=== PATIENT | female | born 1955 | race Caucasian/White ===

== ENCOUNTER 2016-09-23 09:14 | Emergency (ER) | payer OTHER ==
[~2016-09-23] VITALS: Ht 162.6 cm; Wt 63.5 kg
[~2016-09-23 09:14] MED LIST: ASCO500C14 PO; LORA10CA PO; VITA1CAP59 PO
[2016-09-23] MEDS ORDERED: RX-NITROGLYCERIN 0.4 MG TAB BTL 25'S SL ONE ×2 (09:24→09:30)
[2016-09-23] MEDS ORDERED: ASPIRIN 81 MG CHEW (CHILDREN'S ASA) ONE (09:24)
[2016-09-23] MEDS ORDERED: ASPIRIN 81 MG CHEW (CHILDREN'S ASA) PO ONE (09:30)
[2016-09-23] MEDS ORDERED: METF500T4 PO (09:43)
--- NOTE | 2016-09-23 09:45 | ED Chest Pain ---
General Chief Complaint: Cardiac/General Problems Stated Complaint: EPIGASTRIC PAIN Source: patient Exam Limitations: no limitations History of Present Illness Time seen by provider: 09:18 Initial Comments Here with report of epigastric pain that radiated to her back and was associated with some nausea and sweating/clamminess. Acute onset one hour ago and has improved. Reported as severe at onset but now moderate with a 5 out of 10 pain reported. She's never had anything like this before. Otherwise fairly healthy aside from prediabetes. Timing/Duration: 1 hour, changing over time Severity/Quality: moderate, pressure, sharp Location: epigastric Radiation: back Activities at Onset: none Prior CP/Workup: no prior chest pain ASA po DIRECTOR MACHINE: No NTG SL DIRECTOR MACHINE: No Associated Symptoms: abdominal pain, back pain, diaphoresis, nausea/vomiting, No shortness of breath, No weakness Allergies and Home Medications Allergies Coded Allergies: No Known Drug Allergies (Unverified , 03/23/14) Home Medications Metformin HCl 500 Mg Tablet, 500 MG PO BID, (Reported) Review of Systems Constitutional: see HPI, No chills, diaphoresis, No fever EENTM: No Symptoms Reported Respiratory: No Symptoms Reported Cardiovascular: See HPI, Chest Pain, Denies Palpitations Gastrointestinal: Abdominal Pain, Nausea, Denies Vomiting Genitourinary: No Symptoms Reported Musculoskeletal: see HPI, back pain, No muscle pain Skin: no symptoms reported All Other Systems Reviewed Negative Unless Noted: Yes Past Wwyufwo-Kzwyca-Paghqn Hx Patient Social History Alcohol Use: Denies Use Recreational Drug Use: No Smoking Status: Never a Smoker Recent Foreign Travel: No Contact w/Someone Who Travel: No Immunizations Up To Date Date of Pneumonia Vaccine: Mar 18, 2004 Date of Influenza Vaccine: Mar 20, 2014 Surgeries HX Surgeries: Yes Surgeries: Orthopedic Respiratory Hx Respiratory Disorders: No Cardiovascular Hx Cardiac Disorders: No Neurological Hx Neurological Disorders: No Genitourinary Hx Genitourinary Disorders: No Gastrointestinal Hx Gastrointestinal Disorders: No Musculoskeletal Hx Musculoskeletal Disorders: No Endocrine Hx Endocrine Disorders: Yes Endocrine Disorders: Diabetes, Non-Insulin dep HEENT HX ENT Disorders: No Cancer Hx Cancer: No Psychosocial Hx Psychiatric Problems: No Reviewed Nursing Assessment Reviewed/Agree w Nursing PMH: Yes Family Medical History Significant Family History: Other Conditions/Hx (gallbladder disease) Physical Exam Vital Signs Vital Sign - Last 12Hours 09/23/16 09:20 Temp 97.3 Pulse 76 Resp 17 B/P (MAP) 154/88 Pulse Ox 98 Capillary Refill : General Appearance: No Apparent Distress, WD/WN HEENT: PERRL/EOMI, Pharynx Normal Neck: Non Tender, Supple Respiratory: Lungs Clear, Normal Breath Sounds Cardiovascular: Regular Rate, Rhythm, No Murmur Gastrointestinal: Non Tender, Soft Extremity: Normal Inspection, Normal Range of Motion, Non Tender Neurologic/Psychiatric: Alert, Oriented x3 Skin: Normal Color, Warm/Dry Progress/Results/Core Measures Results/Orders Lab Results Laboratory Tests Test 09/23/16 09:30 09/23/16 11:25 Range/Units White Blood Count 6.5 4.3-11.0 10^3/uL Red Blood Count 4.53 4.35-5.85 10^6/uL Hemoglobin 13.2 11.5-16.0 G/DL Hematocrit 39 35-52 % Mean Corpuscular Volume 86 80-99 FL Mean Corpuscular Hemoglobin 29 25-34 PG Mean Corpuscular Hemoglobin Concent 34 32-36 G/DL Red Cell Distribution Width 12.7 10.0-14.5 % Platelet Count 224 130-400 10^3/uL Mean Platelet Volume 10.5 H 7.4-10.4 FL Neutrophils (%) (Auto) 49 42-75 % Lymphocytes (%) (Auto) 43 12-44 % Monocytes (%) (Auto) 6 0-12 % Eosinophils (%) (Auto) 1 0-10 % Basophils (%) (Auto) 1 0-10 % Neutrophils # (Auto) 3.2 1.8-7.8 X 10^3 Lymphocytes # (Auto) 2.8 1.0-4.0 X 10^3 Monocytes # (Auto) 0.4 0.0-1.0 X 10^3 Eosinophils # (Auto) 0.1 0.0-0.3 10^3/uL Basophils # (Auto) 0.0 0.0-0.1 10^3/uL Prothrombin Time 12.6 12.2-14.7 SEC INR Comment 1.0 0.8-1.4 Activated Partial Thromboplast Time 25 24-35 SEC D-Dimer < 0.27 0.00-0.49 UG/ML Sodium Level 140 135-145 MMOL/L Potassium Level 3.5 L 3.6-5.0 MMOL/L Chloride Level 103 98-107 MMOL/L Carbon Dioxide Level 24 21-32 MMOL/L Anion Gap 13 5-14 MMOL/L Blood Urea Nitrogen 20 H 7-18 MG/DL Creatinine 0.86 0.60-1.30 MG/DL Estimat Glomerular Filtration Rate > 60 BUN/Creatinine Ratio 23 Glucose Level 103 70-105 MG/DL Calcium Level 9.0 8.5-10.1 MG/DL Magnesium Level 2.1 1.8-2.4 MG/DL Total Bilirubin 0.4 0.1-1.0 MG/DL Aspartate Amino Transf (AST/SGOT) 32 5-34 U/L Alanine Aminotransferase (ALT/SGPT) 23 0-55 U/L Alkaline Phosphatase 89 40-136 U/L Myoglobin 26.1 10.0-92.0 NG/ML Troponin I < 0.30 < 0.30 <0.30 NG/ML Total Protein 7.2 6.4-8.2 G/DL Albumin 4.1 3.2-4.5 G/DL Amylase Level 93 25-125 U/L Lipase 72 8-78 U/L My Orders Orders - RUPERTO ZAMORANO MD Cbc With Automated Diff (09/23/16:) Magnesium (09/23/16:) Chest 1 View, Ap/Pa Only (09/23/16) Ekg Tracing (09/23/16) Cardiac Profile 1 (09/23/16:) Comprehensive Metabolic Panel (09/23/16) Myoglobin Serum (09/23/16) O2 (09/23/16:) Monitor-Rhythm Ecg Trace Only (09/23/16) Lipid Panel (09/24/16 06:00) Aspirin Chewable Tablet (Baby Aspirin Ch (09/23/16:30) Rx-Nitroglycerin Sl Tabs (Rx-Nitrostat S (09/23/16) Saline Lock/Iv-Start (09/23/16) Lipase (09/23/16:) Amylase (09/23/16:) Fibrin Degradation Products (09/23/16:) Us Gallbladder 94505 (4/8/17 09:26) Aspirin Chewable Tablet (Baby Aspirin Ch (09/23/16 09:24) Rx-Nitroglycerin Sl Tabs (Rx-Nitrostat S (09/23/16 09:24) Saline Lock/Iv-Start (09/23/16 09:51) Ns Iv 1000 Ml (Sodium Chloride 0.9%) (09/23/16 09:51) Protime With Inr (09/23/16 09:30) Partial Thromboplastin Time (09/23/16 09:30) Mri Cholangio-Pancreatography (09/23/16 11:07) Ekg Tracing (09/23/16 11:22) Troponin I (09/23/16 11:22) Medications Given in ED Current Medications Medications Dose Ordered Sig/Beck Route Start Time Stop Time Status Last Admin Dose Admin Aspirin 324 mg ONCE ONCE PO 09/23/16 09:30 09/23/16 09:32 DC 09/23/16 09:30 324 MG Nitroglycerin 0.4 mg UD ONCE SL 09/23/16 09:30 09/23/16 09:32 DC 09/23/16 09:31 0.4 MG Sodium Chloride 1,000 ml @ 0 mls/hr Q0M ONCE IV 09/23/16 09:51 09/23/16 09:52 DC 09/23/16 09:54 1,000 MLS/HR Vital Signs/I&O Vital Sign - Last 12Hours 09/23/16 09:20 Temp 97.3 Pulse 76 Resp 17 B/P (MAP) 154/88 Pulse Ox 98 Progress Note : Progress Note Seen and evaluated. IV, labs, EKG and chest x-ray ordered. Gallbladder ultrasound ordered. ASA 324 mg by mouth and nitroglycerin sublingual ordered. Monitor patient. 1056: Ultrasound results noted as well as labs. I did discuss the case with Dr. Wallis. There is recommendation of MRCP. We will check and see if that's available. 1110: MR CP is available and this has been ordered. We will repeat troponin and EKG for further evaluation of the cardiac concerns. 1130:to MRCP. 1320: I did discuss the case with Dr. Wallis and reviewed the MRCP results. He would like to see the patient in office on Sunday. Patient is pain resolved currently. She is in agreement with follow- up with him. She will likely need cholecystectomy and patient agrees and understands that. Discharged home with return precautions. Patient verbalize understanding instructions and agreement with plan. ECG Initial ECG Impression Date: Sep 23, 2016 Initial ECG Impression Time: 09:24 Initial ECG Rate: 73 Initial ECG Rhythm: Normal Sinus Initial ECG Impression: Normal Initial ECG Comparisson: No Previous ECG Available Comment Sinus rhythm with normal axis. No evidence of ST elevation OR. No previous available for comparison. Interpreted by me. EKG : EKG Time: 11:28 Rate: 68 Rhythm: Normal Sinus ECG Comparisson: Unchanged ECG Impression: Normal Comment Sinus rhythm with normal axis. No evidence of ST elevation OR. Unchanged from previous. Interpreted by me. Diagnostic Imaging Diagonstic Imaging: Xray Plain Films/CT/US/NM/MRI: chest Comments NAME: KARENA HARRIS [facility] REC#: [id number] PT STATUS: REG ER : 1955 PHYSICIAN: RUPERTO ZAMORANO MD ADMIT DATE: 09/23/16/ER Signed Date of Exam: 09/23/16 CHEST 1 VIEW, AP/PA ONLY INDICATION: Epigastric pain and diaphoresis. COMPARISON: None. FINDINGS: Upright portable view of the chest is obtained. Heart size is normal. The pulmonary vessels appear unremarkable. There is no pneumothorax, mediastinal widening, or pleural fluid demonstrated. The lungs are clear. IMPRESSION: Negative chest. Dictated by: Dictated on workstation # [id number] Dict: 09/23/16 1013 Trans: 09/23/16 1019 [id number] Interpreted by: LEYDI BLUM DO Electronically signed by:LEYDI BLUM DO 09/23/16 1019 Diagonstic Imaging: Ultrasound Plain Films/CT/US/NM/MRI: abdomen Comments [place] NAME: KARENA HARRIS [facility] REC#: [id number] PT STATUS: REG ER : 1955 PHYSICIAN: RUPERTO ZAMORANO MD ADMIT DATE: 09/23/16/ER Draft Date of Exam:09/23/16 US GALLBLADDER [id number] PROCEDURE: US Gallbladder. TECHNIQUE: Multiple real-time grayscale images were obtained over the right upper quadrant in various projections. INDICATION: Epigastric pain. COMPARISON: None. FINDINGS: The liver appears unremarkable. There is no focal hepatic mass. Color Doppler imaging demonstrates normal hepatopetal flow in the main portal vein. The common bile duct measures about 10 mm which is prominent even for age. No definite stone is seen. There is no intrahepatic biliary dilatation. There is a 6 mm non-shadowing echogenic focus adherent to the gallbladder wall which is probably a small polyp. No definite stones are seen. There is no pericholecystic fluid or gallbladder wall thickening. No sonographic Leon's sign. The pancreas appears unremarkable as visualized. There is no ascites. The right kidney measures 10.7 cm in length and appears normal. IMPRESSION: 1. A 6 mm probable gallbladder polyp. 2. Common bile duct measures about 10 mm in diameter which is prominent. No discrete mass or stone is seen. If clinically warranted, MRCP may be of additional benefit. Dictated on workstation # [id number] Dict: 09/23/16 1044 Trans: 09/23/16 1049 [id number] Interpreted by: LEYDI BLUM DO Electronically signed by: Sonalgonschao Imaging: MRI Plain Films/CT/US/NM/MRI: abdomen Comments [place] NAME: KARENA HARRIS [facility] REC#: [id number] PT STATUS: REG ER : 1955 PHYSICIAN: RUPERTO ZAMORANO MD ADMIT DATE: 09/23/16/ER Draft Date of Exam:09/23/16 MRI CHOLANGIO-PANCREATOGRAPHY PROCEDURE: MR imaging cholangiography-pancreatography. TECHNIQUE: Multiplanar imaging of the abdomen was performed on a 1.5 Renetta magnet without contrast. 3D reconstructions were made for the MRCP INDICATION: Dilated common bile duct, abnormal ultrasound. COMPARISON: Gallbladder ultrasound dated 09/23/2016. FINDINGS: The common bile duct is prominent in caliber measuring up to 9 mm in diameter; however, no focal stone or obstructive process is seen. This is likely within normal limits for patient. The pancreatic duct is not well demonstrated. The liver appears unremarkable. The gallbladder appears mildly distended. There does appear to be some edema of the wall of the gallbladder which is nonspecific. No discrete stones are seen. No ascites. The liver, pancreas, spleen, adrenal glands, and kidneys are unremarkable as visualized. IMPRESSION: 1. The common bile duct is mildly prominent; however, no retained stone or mass is seen. 2. There is some mild edema in the gallbladder wall which is nonspecific. No stones are seen. Acalculus cholecystitis would difficult to entirely exclude. 3. No additional abnormality is demonstrated. Dictated on workstation # [id number] Dict: 09/23/16 1221 Trans: 09/23/16 1250 [id number] Interpreted by: LEYDI BLUM DO Electronically signed by: Departure Impression Impression: Primary Impression: Right upper quadrant abdominal pain Additional Impression: Gallbladder polyp Disposition: HOME, SELF-CARE Condition: Improved Departure-Patient Inst. Decision time for Depature: 13:31 Referrals: NAYELI WALLIS MINDI DO (PCP/Family) Primary Care Physician Patient Instructions: POSS GALLSTONE-W/BILIARY COLIC Add. Discharge Instructions: All discharge instructions reviewed with patient and/or family. Voiced understanding. Clear liquid diet for 24 hours and then advance as tolerated. Follow-up with Dr. Wallis and Sunday for recheck and further evaluation. Call his office in the morning for appointment time or you may show up at 1 o'clock and he will fit you in. Return for worse pain, fever, vomiting, weakness, breathing problems or other concerns as needed. Avoid fats in your diet. Copy Copies To 1: NAYELI WALLIS DO Copies To 2: SUHAIL MCCLENDON TIMOTHY D MD Sep 23, 2016 09:45
[2016-09-23] MEDS ORDERED: NS IV 1000 ML 1,000 ML IV ONE (09:51)
[2016-09-23 09:56] LABS: BASOPHILS % (AUTO) 1 % (0-10); EOSINOPHILS # (AUTO) 0.1 10^3/uL (0.0-0.3); EOSINOPHILS % (AUTO) 1 % (0-10); LYMPHOCYTES # (AUTO) 2.8 X 10^3 (1.0-4.0); LYMPHOCYTES % (AUTO) 43 % (12-44); MEAN CORPUSCULAR HEMOGLOBIN 29 PG (25-34); MEAN CORPUSCULAR HGB CONC 34 G/DL (32-36); MEAN CORPUSCULAR VOLUME 86 FL (80-99); MEAN PLATELET VOLUME 10.5 FL (7.4-10.4); MONOCYTES # (AUTO) 0.4 X 10^3 (0.0-1.0); MONOCYTES % (AUTO) 6 % (0-12); NEUTROPHILS # (AUTO) 3.2 X 10^3 (1.8-7.8); NEUTROPHILS % (AUTO) 49 % (42-75); PLATELET COUNT 224 10^3/uL (130-400); RED BLOOD COUNT 4.53 10^6/uL (4.35-5.85); RED CELL DISTRIBUTION WIDTH 12.7 % (10.0-14.5); WHITE BLOOD COUNT 6.5 10^3/uL (4.3-11.0)
[2016-09-23 10:17] LABS: ALANINE AMINOTRANSFERASE 23 U/L (0-55); ALBUMIN 4.1 G/DL (3.2-4.5); AMYLASE 93 U/L (25-125); ANION GAP 13 MMOL/L (5-14); ASPARTATE AMINO TRANSFERASE 32 U/L (5-34); BILIRUBIN,TOTAL 0.4 MG/DL (0.1-1.0); BLOOD UREA NITROGEN 20 MG/DL (7-18); BUN/CREATININE RATIO 23; CARBON DIOXIDE 24 MMOL/L (21-32); CHLORIDE 103 MMOL/L (98-107); CREATININE SERUM 0.86 MG/DL (0.60-1.30); GFR ESTIMATED > 60; GLUCOSE 103 MG/DL (70-105); LIPASE 72 U/L (8-78); MAGNESIUM 2.1 MG/DL (1.8-2.4); POTASSIUM 3.5 MMOL/L (3.6-5.0); SODIUM 140 MMOL/L (135-145); TOTAL PROTEIN 7.2 G/DL (6.4-8.2)
--- NOTE | 2016-09-23 10:17 | Diagnostic Imaging Report ---
INDICATION: Epigastric pain and diaphoresis. COMPARISON: None. FINDINGS: Upright portable view of the chest is obtained. Heart size is normal. The pulmonary vessels appear unremarkable. There is no pneumothorax, mediastinal widening, or pleural fluid demonstrated. The lungs are clear. IMPRESSION: Negative chest. Dictated by: Dictated on workstation # [id number]
[2016-09-23 10:24] LABS: MYOGLOBIN SERUM 26.1 NG/ML (10.0-92.0)
[2016-09-23 10:39] LABS: PARTIAL THROMBOPLASTIN TIME 25 SEC (24-35)
[2016-09-23 10:45] LABS: PROTHROMBIN TIME PATIENT 12.6 SEC (12.2-14.7)
--- NOTE | 2016-09-23 10:49 | Diagnostic Imaging Report ---
PROCEDURE: US Gallbladder. TECHNIQUE: Multiple real-time grayscale images were obtained over the right upper quadrant in various projections. INDICATION: Epigastric pain. COMPARISON: None. FINDINGS: The liver appears unremarkable. There is no focal hepatic mass. Color Doppler imaging demonstrates normal hepatopetal flow in the main portal vein. The common bile duct measures about 10 mm which is prominent even for age. No definite stone is seen. There is no intrahepatic biliary dilatation. There is a 6 mm non-shadowing echogenic focus adherent to the gallbladder wall which is probably a small polyp. No definite stones are seen. There is no pericholecystic fluid or gallbladder wall thickening. No sonographic Leon's sign. The pancreas appears unremarkable as visualized. There is no ascites. The right kidney measures 10.7 cm in length and appears normal. IMPRESSION: 1. A 6 mm probable gallbladder polyp. 2. Common bile duct measures about 10 mm in diameter which is prominent. No discrete mass or stone is seen. If clinically warranted, MRCP may be of additional benefit. Dictated by: Dictated on workstation # [id number]
--- NOTE | 2016-09-23 12:51 | Diagnostic Imaging Report ---
PROCEDURE: MR imaging cholangiography-pancreatography. TECHNIQUE: Multiplanar imaging of the abdomen was performed on a 1.5 Renetta magnet without contrast. 3D reconstructions were made for the MRCP INDICATION: Dilated common bile duct, abnormal ultrasound. COMPARISON: Gallbladder ultrasound dated 09/23/2016. FINDINGS: The common bile duct is prominent in caliber measuring up to 9 mm in diameter; however, no focal stone or obstructive process is seen. This is likely within normal limits for patient. The pancreatic duct is not well demonstrated. The liver appears unremarkable. The gallbladder appears mildly distended. There does appear to be some edema of the wall of the gallbladder which is nonspecific. No discrete stones are seen. No ascites. The liver, pancreas, spleen, adrenal glands, and kidneys are unremarkable as visualized. IMPRESSION: 1. The common bile duct is mildly prominent; however, no retained stone or mass is seen. 2. There is some mild edema in the gallbladder wall which is nonspecific. No stones are seen. Acalculus cholecystitis would difficult to entirely exclude. 3. No additional abnormality is demonstrated. Dictated by: Dictated on workstation # [id number]
[2016-09-23 13:45] VITALS: BP 135/72
--- OUTSIDE RECORDS SUMMARY | 2016-10-29 04:44 | XMS REPORT | Clinical Summary ---
Author Author User, [employer] Antoinette Dickinson DO, FACP Address Unknown Phone Allergies, Adverse Reactions, Alerts Allergy Name Reaction Description Start Date Severity Status Provider No Known Allergies Carlos Enrique Krueger Conditions or Problems Problem Name Problem Code Onset Date Status Entry Date Provider Comment Standard Description Annotate SINUSITIS, SPHENOIDAL, ACUTE 461.3 Resolved Antoinette Dickinson Acute sphenoidal sinusitis WELL WOMAN V70.0 Resolved Antoinette Dickinson Routine general medical examination at a health care facility ABNORMAL MAMMOGRAM 793.80 Resolved Antoinette Dickinson Abnormal mammogram, unspecified ALLERGIC RHINITIS, SEASONAL 477.0 Active Antoinette Dickinson Allergic rhinitis due to pollen DIABETES MELLITUS, NONINSULIN DEPENDENT (NIDDM) 250.02 Active Antoinette Dickinson Diabetes mellitus without mention of complication, type II or unspecified type, uncontrolled WELL WOMAN V70.0 Resolved Antoinette Dickinson Routine general medical examination at a health care facility SINUSITIS, SPHENOIDAL, ACUTE 461.3 Resolved Antoinette Dickinson Acute sphenoidal sinusitis WEIGHT GAIN, ABNORMAL 783.1 Active Antoinette Dickinson Abnormal weight gain SINUSITIS, SPHENOIDAL, ACUTE 461.3 Active Antoinette Dickinson Acute sphenoidal sinusitis Medication List Medication Instructions Start Date Stop Date Generic Name NDC Status Provider Patient Instruction METFORMIN HCL 500 MG TABS 1 po daily METFORMIN HCL 51033457809 Active Monica Mcmahon AUGMENTIN 500-125 MG TAB 1 PO BID AMOXICILLIN-POT CLAVULANATE 13553806735 No Longer Active Antoinette Dickinson AUGMENTIN 500-125 MG TAB 1 PO BID AMOXICILLIN-POT CLAVULANATE 40983987276 No Longer Active Antoinette Dickinson ATROVENT 0.06 % SOLN 2 puffs each nostril TID prn runny nose 2013 IPRATROPIUM BROMIDE 81884653940 No Longer Active Antoinette Dickinson PYRIDIUM 200 MG TAB 1 PO TID prn urinary urgency PHENAZOPYRIDINE HCL 01999110231 No Longer Active Monica Mcmahon BACTRIM DS 800-160 MG TAB 1 PO BID x 5 DAYS TRIMETHOPRIM-SULFAMETHOXAZOLE 30362703666 No Longer Active Monica Mcmahon KEFLEX 500 MG CAP 1 PO TID for 5 days CEPHALEXIN 71149629157 No Longer Active Antoinette Dickinson NASONEX 50 MCG/ACT SUSP 2 puffs BID MOMETASONE FUROATE 71344808321 Active Gianluca Vigil PREDNISONE 20 MG TAB 2 pills at once for 2 days then 1 pill daily for 2 days PREDNISONE 17885942032 No Longer Active Antoinette Dickinson AUGMENTIN 500-125 MG TAB 1 PO BID AMOXICILLIN-POT CLAVULANATE 53146262614 No Longer Active Antoinette PERRY'Silverio NASAL SPRAY (DEXAMETHASONE, GENTAMICIN, SALINE) 2 puffs each nostril TID for [address] PERRY'Silverio NASAL SPRAY ( DEXAMETHASONE, GENTAMICIN, SALINE) No Longer Active Antoinette Dickinson CLARITIN 10 MG TAB 1 PO daily LORATADINE 23226928409 Active Antoinette Dickinson Immunizations Vaccine Administration Date Value Standard Description Influenza vaccine given done influenza virus vaccine, unspecified formulation Influenza vaccine given DONE influenza virus vaccine, unspecified formulation Vital Signs Date Name Value Unit Range Description blood pressure, diastolic - 8462-4 83 mm[Hg] BP blackmon blood pressure, systolic - 8480-6 139 mm[Hg] BP sys pulse rate E&M - 8867-4 68 /min Heart rate respiratory rate E&M - 9279-1 14 /min Resp rate weight E&M - 3141-9 149 [lb_av] Weight Measured blood pressure, diastolic - 8462-4 80 mm[Hg] BP blackmon blood pressure, systolic - 8480-6 120 mm[Hg] BP sys pulse rate E&M - 8867-4 78 /min Heart rate respiratory rate E&M - 9279-1 14 /min Resp rate weight E&M - 3141-9 145 [lb_av] Weight Measured blood pressure, diastolic - 8462-4 66 mm[Hg] BP blackmon blood pressure, systolic - 8480-6 122 mm[Hg] BP sys pulse rate E&M - 8867-4 76 /min Heart rate respiratory rate E&M - 9279-1 14 /min Resp rate temperature E&M 98.4 [degF] Body temperature blood pressure, diastolic - 8462-4 76 mm[Hg] BP blackmon blood pressure, systolic - 8480-6 142 mm[Hg] BP sys pulse rate E&M - 8867-4 70 /min Heart rate respiratory rate E&M - 9279-1 14 /min Resp rate temperature E&M 98.6 [degF] Body temperature weight E&M - 3141-9 130 [lb_av] Weight Measured Diagnostic Results Date Name Value Unit Range Description Clinical Lists Update: CBC,CMP,FLP,TSH,HgA1c - Chemistry albumin, serum 4.3 g/dL Estimated Glomerular Filtration Rate (calc) >60 mL/min/1.73m2 urea nitrogen, blood 16 mg/dL calcium, serum 9.4 mg/dL chloride, serum 105 mmol/L cholesterol, serum 168 mg/dL carbon dioxide, venous blood 30 mmol/L creatinine, serum 0.87 mg/dL HDL cholesterol, serum 59 mg/dL hemoglobin A1C, blood, as % of total hemoglobin 6.7 % thyroid stimulating hormone, serum 1.77 u[iU]/mL LDL cholesterol, serum 96 mg/dL potassium, serum 3.7 mmol/L protein, total, serum 7.5 g/dL aspartate aminotransferase (SGOT), serum 17 U/L alanine aminotransferase (SGPT), serum 14 U/L bilirubin, serum, total 0.4 mg/dL triglyceride, serum, fasting 77 mg/dL sodium, serum 141 mmol/L very low density lipoproteins 15 mg/dL glucose, plasma fasting 93 mg/dL alkaline phosphatase, serum 76 U/L Clinical Lists Update: CBC,CMP,FLP,TSH,HgA1c - Hematology hematocrit, blood 40 % hemoglobin, blood 13.7 g/dL platelet count 227 10*3/mm3 erythrocyte (RBC) count 4.57 10*6/mm3 leukocyte count, blood 6.6 10*3/mm3 mean corpuscular volume, RBC 87 fL red blood cell distribution width 12.0 % Clinical Lists Update: CMP,FLP,HGA1C,MICROALBUMIN - Chemistry creatinine, serum 0.82 mg/dL albumin, serum 4.2 g/dL hemoglobin A1C, blood, as % of total hemoglobin 6.4 % LDL cholesterol, serum 87 mg/dL potassium, serum 4.0 mmol/L protein, total, serum 7.1 g/dL aspartate aminotransferase (SGOT), serum 19 U/L alanine aminotransferase (SGPT), serum 18 U/L bilirubin, serum, total 0.4 mg/dL triglyceride, serum, fasting 61 mg/dL sodium, serum 140 mmol/L very low density lipoproteins 12 mg/dL glucose, plasma fasting 98 mg/dL Estimated Glomerular Filtration Rate (calc) >60 mL/min/1.73m2 HDL cholesterol, serum 67 mg/dL carbon dioxide, venous blood 25 mmol/L cholesterol, serum 165 mg/dL chloride, serum 105 mmol/L calcium, serum 9.9 mg/dL urea nitrogen, blood 23 mg/dL alkaline phosphatase, serum 77 U/L Clinical Lists Update: CMP,FLP,HGA1C,MICROALBUMIN - Urinalysis microalbumin, urine, semiquantitative 6.2 mg/dL Encounters Code Encounter Date Provider Facility CPT-95460 Ofc Vst, Est Level III 21:08:46 CDT Antoinette Dickinson DO, FACP CPT-31977 Ofc Vst, Est Level IV 20:22:13 CDT Antoinette Dickinson DO, FACP CPT-25648 Ofc Vst, Est Level III 13:31:05 [employer] Antoinette Dickinson DO, FACP CPT-99159 Ofc Vst, New Level III 16:58:14 CDT Antoinette Dickinson DO, FACP Procedures Code Procedure Name Date Entry Date Standard Description CPT-50961 Preventive, Est, (40-64) 16:55:51 CDT CPT-57124 Preventive, Est, (40-64) 13:49:28 CDT CPT-27557 Handling of specimen from office to lab 12:51:38 CDT CPT-37485 Geraldo Dawn, (40-64) 12:51:38 CDT
--- OUTSIDE RECORDS SUMMARY | 2016-10-29 04:44 | XMS REPORT | Clinical Summary ---
Author Author User, [employer] Organization Antoinette Dickinson DO, FACP Address Unknown Phone Allergies, Adverse Reactions, Alerts Allergy Name Reaction Description Start Date Severity Status Provider No Known Allergies Carlos Enrique Pati Conditions or Problems Problem Name Problem Code [...] 783.1 Active Antoinette Dickinson Abnormal weight gain Medication List Medication Instructions Start Date Stop Date Generic Name NDC Status Provider Patient Instruction AUGMENTIN 500-125 MG TAB 1 PO BID AMOXICILLIN-POT CLAVULANATE 47507973197 No Longer Active Antoinette Dickinson ATROVENT 0.06 % SOLN 2 puffs each nostril TID prn runny nose 2013 IPRATROPIUM BROMIDE 06648712047 No Longer Active Antoinette Dickinson PYRIDIUM 200 MG TAB 1 PO TID prn urinary urgency PHENAZOPYRIDINE HCL 54368790679 No Longer Active Monica Mcmahon BACTRIM DS 800-160 MG TAB 1 PO BID x 5 DAYS TRIMETHOPRIM-SULFAMETHOXAZOLE 07389599971 No Longer Active Monica Mcmahon KEFLEX 500 MG CAP 1 PO TID for 5 days CEPHALEXIN 74382453713 No Longer Active Antoinette Dickinson NASONEX 50 MCG/ACT SUSP 2 puffs BID MOMETASONE FUROATE 77614116111 Active Gianluca Vigil PREDNISONE 20 MG TAB 2 pills at once for 2 days then 1 pill daily for 2 days PREDNISONE 33712300128 No Longer Active Antoinette Dickinson AUGMENTIN 500-125 MG TAB 1 PO BID AMOXICILLIN-POT CLAVULANATE 42092325529 No Longer Active Antoinette PERRY'Silverio NASAL SPRAY (DEXAMETHASONE, GENTAMICIN, SALINE) 2 puffs each nostril TID for [address] PERRY'Silverio NASAL SPRAY ( DEXAMETHASONE, GENTAMICIN, SALINE) No Longer Active Antoinette Dickinson CLARITIN 10 MG TAB 1 PO daily LORATADINE 29939287924 Active Antoinette Dickinson Immunizations Vaccine Administration Date Value Standard Description Influenza vaccine given done influenza virus vaccine, unspecified formulation Influenza vaccine given DONE influenza virus vaccine, unspecified formulation Vital Signs Date Name Value Unit Range Description blood pressure, diastolic - 8462-4 80 mm[Hg] [...] Description Clinical Lists Update: CBC,CMP,FLP,TSH,HgA1c - Chemistry Estimated Glomerular Filtration Rate (calc) >60 mL/min/1.73m2 thyroid stimulating hormone, serum 1.77 u[iU]/mL glucose, plasma fasting 93 mg/dL alkaline phosphatase, serum 76 U/L very low density lipoproteins 15 mg/dL urea nitrogen, blood 16 mg/dL sodium, serum 141 mmol/L calcium, serum 9.4 mg/dL triglyceride, serum, fasting 77 mg/dL chloride, serum 105 mmol/L bilirubin, serum, total 0.4 mg/dL cholesterol, serum 168 mg/dL alanine aminotransferase (SGPT), serum 14 U/L carbon dioxide, venous blood 30 mmol/L aspartate aminotransferase (SGOT), serum 17 U/L creatinine, serum 0.87 mg/dL protein, total, serum 7.5 g/dL HDL cholesterol, serum 59 mg/dL potassium, serum 3.7 mmol/L hemoglobin A1C, blood, as % of total hemoglobin 6.7 % LDL cholesterol, serum 96 mg/dL albumin, serum 4.3 g/dL Clinical Lists Update: CBC,CMP,FLP,TSH,HgA1c - Hematology hematocrit, blood 40 % hemoglobin, blood 13.7 g/dL platelet count 227 10*3/mm3 erythrocyte (RBC) count 4.57 10*6/mm3 leukocyte count, blood 6.6 10*3/mm3 mean corpuscular volume, RBC 87 fL red blood cell distribution width 12.0 % Clinical Lists Update: CMP,FLP,HGA1C,MICROALBUMIN - Chemistry alanine aminotransferase (SGPT), serum 18 U/L LDL cholesterol, serum 87 mg/dL bilirubin, serum, total 0.4 mg/dL cholesterol, serum 165 mg/dL triglyceride, serum, fasting 61 mg/dL chloride, serum 105 mmol/L sodium, serum 140 mmol/L calcium, serum 9.9 mg/dL very low density lipoproteins 12 mg/dL urea nitrogen, blood 23 mg/dL glucose, plasma fasting 98 mg/dL alkaline phosphatase, serum 77 U/L Estimated Glomerular Filtration Rate (calc) >60 mL/min/1.73m2 albumin, serum 4.2 g/dL carbon dioxide, venous blood 25 mmol/L creatinine, serum 0.82 mg/dL aspartate aminotransferase (SGOT), serum 19 U/L HDL cholesterol, serum 67 mg/dL protein, total, serum 7.1 g/dL hemoglobin A1C, blood, as % of total hemoglobin 6.4 % potassium, serum 4.0 mmol/L Clinical Lists Update: CMP,FLP,HGA1C,MICROALBUMIN - Urinalysis microalbumin, urine, semiquantitative 6.2 mg/dL Encounters Code Encounter Date Provider Facility CPT-15574 Ofc Vst, Est Level IV 20:22:13 CDT Antointete Dickinson DO, FACP CPT-97202 Ofc Vst, Est Level III 13:31:05 [employer] Antoinette Dickinson DO, FACP CPT-50158 Ofc Vst, New Level III 16:58:14 CDT Antoinette Dickinson DO, FACP Procedures Code Procedure Name Date Entry Date Standard Description CPT-55482 Preventive, Est, (40-64) 16:55:51 CDT CPT-06824 Preventive, Est, (40-64) 13:49:28 CDT CPT-18414 Handling of specimen from office to lab 12:51:38 CDT CPT-04622 Preventive, Est, (40-64) 12:51:38 CDT
--- OUTSIDE RECORDS SUMMARY | 2016-10-29 04:44 | XMS REPORT | Continuity of Care Document ---
Author Author [facility] Organization [facility] Address Unknown Phone Unavailable Allergies Active Description Code Type Severity Reaction Onset Reported/Identified Relationship to Patient Clinical Status Yes No Known Drug Allergies [id number] Drug Allergy Unknown N/ A 03/23/2014 Medications Problems Date Dx Coded Attending Type Code Diagnosis Diagnosed By 04/30/2014 MCCLENDON DO, SUHAIL Ot 793.80 09/10/2014 Ot 250.02 09/10/2014 Ot 477.0 09/10/2014 Ot V58.69 09/10/2014 Ot V70.0 03/26/2015 MCCLENDON DO, SUHAIL Ot 250.02 03/26/2015 MCCLENDON DO, SUHAIL Ot 272.7 03/26/2015 MCCLENDON DO, SUHAIL Ot 783.1 03/26/2015 MCCLENDON DO, SUHAIL Ot V70.0 04/30/2015 MCCLENDON DO, SUHAIL Ot Z12.31 05/17/2015 MCCLENDON DO, SUHAIL Ot Z12.31 09/13/2015 MCCLENDON DO, SUHAIL Ot E11.65 09/13/2015 MCCLENDON DO, SUHAIL Ot E75.6 09/13/2015 MCCLENDON DO, SUHAIL Ot R63.5 09/13/2015 MCCLENDON DO, SUHAIL Ot Z00.00 09/29/2015 MCCLENDON DO, SUHAIL Ot E11.65 09/29/2015 MCCLENDON DO, SUHAIL Ot E75.6 09/29/2015 MCCLENDON DO, SUHAIL Ot R63.5 09/29/2015 MCCLENDON DO, SUHAIL Ot Z00.00 05/18/2016 Ot Z12.31 ENCNTR SCREEN MAMMOGRAM FOR MALIGNANT NE 05/29/2016 Ot Z12.31 ENCNTR SCREEN MAMMOGRAM FOR MALIGNANT NE 09/23/2016 LONA CANTU, RUPERTO Mock Ot K82.4 CHOLESTEROLOSIS OF GALLBLADDER 09/23/2016 RUPERTO ZAMORANO MD Ot R10.11 RIGHT UPPER QUADRANT PAIN 09/23/2016 RUPERTO ZAMORANO MD, Ot R10.13 EPIGASTRIC PAIN 09/27/2016 RUPERTO ZAMORANO MD, Ot K82.4 CHOLESTEROLOSIS OF GALLBLADDER 09/27/2016 RUPERTO ZAMORANO MD, Ot R10.11 RIGHT UPPER QUADRANT PAIN 09/27/2016 RUPERTO ZAMORANO MD, Ot R10.13 EPIGASTRIC PAIN Procedures Results Test Result Range Complete blood count (CBC) with automated white blood cell (WBC) differential - 09/23/16 09:30 Blood leukocytes automated count (number/volume) 6.5 10*3/ uL 4.3-11.0 Blood erythrocytes automated count (number/volume) 4.53 10*6 /uL 4.35-5.85 Venous blood hemoglobin measurement (mass/volume) 13.2 g/dL 11.5-16.0 Blood hematocrit (volume fraction) 39 % 35-52 Automated erythrocyte mean corpuscular volume 86 [foz_us] 80-99 Automated erythrocyte mean corpuscular hemoglobin (mass per erythrocyte) 29 pg 25-34 Automated erythrocyte mean corpuscular hemoglobin concentration measurement ( mass/volume) 34 g/dL 32-36 Automated erythrocyte distribution width ratio 12.7 % 10.0-14.5 Automated blood platelet count (count/volume) 224 10*3/uL 130-400 Automated blood platelet mean volume measurement 10.5 [foz_ us] 7.4-10.4 Automated blood neutrophils/100 leukocytes 49 % 42-75 Automated blood lymphocytes/100 leukocytes 43 % 12-44 Blood monocytes/100 leukocytes 6 % 0-12 Automated blood eosinophils/100 leukocytes 1 % 0-10 Automated blood basophils/100 leukocytes 1 % 0-10 Blood neutrophils automated count (number/volume) 3.2 10*3 1.8-7.8 Blood lymphocytes automated count (number/volume) 2.8 10*3 1.0-4.0 Blood monocytes automated count (number/volume) 0.4 10*3 0.0-1.0 Automated eosinophil count 0.1 10*3/uL 0.0-0.3 Automated blood basophil count (count/volume) 0.0 10*3/uL 0.0-0.1 Comprehensive metabolic panel - 09/23/16 09:30 Serum or plasma sodium measurement (moles/volume) 140 mmol/ L 135-145 Serum or plasma potassium measurement (moles/volume) 3.5 mmol/L 3.6-5.0 Serum or plasma chloride measurement (moles/volume) 103 mmol /L 98-107 Carbon dioxide 24 mmol/L 21-32 Serum or plasma anion gap determination (moles/volume) 13 mmol/L 5-14 Serum or plasma urea nitrogen measurement (mass/volume) 20 mg/dL 7-18 Serum or plasma creatinine measurement (mass/volume) 0.86 mg /dL 0.60-1.30 Serum or plasma urea nitrogen/creatinine mass ratio 23 NRG Serum or plasma creatinine measurement with calculation of estimated glomerular filtration rate > NRG Serum or plasma glucose measurement (mass/volume) 103 mg/dL 70-105 Serum or plasma calcium measurement (mass/volume) 9.0 mg/dL 8.5-10.1 Serum or plasma total bilirubin measurement (mass/volume) 0.4 mg/dL 0.1-1.0 Serum or plasma alkaline phosphatase measurement (enzymatic activity/volume) 89 U/L 40-136 Serum or plasma aspartate aminotransferase measurement (enzymatic activity/ volume) 32 U/L 5-34 Serum or plasma alanine aminotransferase measurement (enzymatic activity/volume ) 23 U/L 0-55 Serum or plasma protein measurement (mass/volume) 7.2 g/dL 6.4-8.2 Serum or plasma albumin measurement (mass/volume) 4.1 g/dL 3.2-4.5 Magnesium - 09/23/16 09:30 Magnesium 2.1 mg/dL 1.8-2.4 Serum or plasma troponin i.cardiac measurement (mass/volume) - 09/23/16 09:30 Serum or plasma troponin i.cardiac measurement (mass/volume) < ng/mL <0.30 Myoglobin, serum - 09/23/16 09:30 Myoglobin, serum 26.1 ng/mL 10.0-92.0 Serum or plasma amylase measurement (enzymatic activity/volume) - 09/23/16 09: 30 Serum or plasma amylase measurement (enzymatic activity/volume) 93 U/L 25-125 Lipase - 09/23/16 09:30 Lipase 72 U/L 8-78 PT panel in platelet poor plasma by coagulation assay - 09/23/16 09:30 Prothrombin time (PT) in platelet poor plasma by coagulation assay 12.6 s 12.2-14.7 INR in platelet poor plasma or blood by coagulation assay 1.0 0.8-1.4 Activated partial thromboplastin time (aPTT) in platelet poor plasma bycoagulation assay - 09/23/16 09:30 Activated partial thromboplastin time (aPTT) in platelet poor plasma bycoagulation assay 25 s 24-35 Fibrin D-dimer FEU measurement in platelet poor plasma (mass/volume) - 09:30 Fibrin D-dimer FEU measurement in platelet poor plasma (mass/volume) < ug/mL 0.00-0.49 Serum or plasma troponin i.cardiac measurement (mass/volume) - 09/23/16 11:25 Serum or plasma troponin i.cardiac measurement (mass/volume) < ng/mL <0.30 Encounters ACCT No. Visit Date/Time Discharge Status Pt. Type Provider Facility Loc./Unit Complaint [id number] 09/27/2016 05:35:00 2016 14:43:00 DIS Outpatient NAYELI WALLIS DO [facility] PREOP GALLBLADDER POLYPS [id number] 09/23/2016 09:15:00 2016 13:44:00 DIS Emergency RUPERTO ZAMORANO MD [facility] ER EPIGASTRIC PAIN [id number] 04/29/2015 11:37:00 2014 23:59:59 CLS Outpatient SUHAIL MCCLENDON DO [facility] RAD [id number] 03/12/2015 08:15:00 2014 23:59:59 CLS Outpatient SUHAIL MCCLENDON DO [facility] LAB [id number] 03/31/2014 10:39:00 2013 23:59:59 CLS Outpatient SUHAIL MCCLENDON DO [facility] RAD [id number] 03/23/2014 08:08:00 2013 12:00:00 DIS Outpatient [id number] 03/18/2014 07:18:00 2013 23:59:59 CLS Outpatient [id number] 02/23/2014 10:20:00 2013 23:59:59 CLS Outpatient [id number] 10/06/2013 13:24:00 2013 23:59:59 CLS Outpatient [id number] 07/15/2013 11:49:00 2013 23:59:59 CLS Outpatient [id number] 03/25/2013 08:24:00 2012 23:59:59 CLS Outpatient [id number] 03/11/2013 08:44:00 2012 23:59:59 CLS Outpatient [id number] 10/02/2016 11:30:00 PEN Preadmit NAYELI WALLIS DO [facility] SDC GALLBLADDER POLYPS [id number] 05/17/2016 11:07:00 Document Registration [id number] 09/10/2015 08:46:00 ACT Outpatient SUHAIL MCCLENDON DO [facility] LAB [id number] 08/20/2014 08:03:00 Document Registration
--- OUTSIDE RECORDS SUMMARY | 2016-10-29 04:45 | XMS REPORT | Clinical Summary ---
Author Author User, [employer] Organization Antoinette Dickinson DO, FACP Address Unknown [...] Instruction METFORMIN HCL 500 MG TABS 1 PO BID METFORMIN HCL 02082028592 Active Antoinette Dickinson AUGMENTIN 500-125 MG TAB 1 PO BID AMOXICILLIN-POT CLAVULANATE 70460007258 No Longer Active Antoinette Dickinson AUGMENTIN 500-125 MG TAB 1 PO BID AMOXICILLIN-POT CLAVULANATE 59816046859 No Longer Active Antoinette Dickinson ATROVENT 0.06 % SOLN 2 puffs each nostril TID prn runny nose 2013 IPRATROPIUM BROMIDE 92118124225 No Longer Active Antoinette Dickinson PYRIDIUM 200 MG TAB 1 PO TID prn urinary urgency PHENAZOPYRIDINE HCL 25609218233 No Longer Active Monica Mcmahon BACTRIM DS 800-160 MG TAB 1 PO BID x 5 DAYS TRIMETHOPRIM-SULFAMETHOXAZOLE 60392316331 No Longer Active Monica Mcmahon KEFLEX 500 MG CAP 1 PO TID for 5 days CEPHALEXIN 79616326090 No Longer Active Antoinette Dickinson NASONEX 50 MCG/ACT SUSP 2 puffs BID MOMETASONE FUROATE 95904330853 Active Gianluca Vigil PREDNISONE 20 MG TAB 2 pills at once for 2 days then 1 pill daily for 2 days PREDNISONE 83362740678 No Longer Active Antoinette Dickinson AUGMENTIN 500-125 MG TAB 1 PO BID AMOXICILLIN-POT CLAVULANATE 70579559744 No Longer Active Antoinette DE LA CRUZ NASAL SPRAY (DEXAMETHASONE, GENTAMICIN, SALINE) 2 puffs each nostril TID for [address] DE LA CRUZ NASAL SPRAY ( DEXAMETHASONE, GENTAMICIN, SALINE) No Longer Active Antoinette Dickinson CLARITIN 10 MG TAB 1 PO daily LORATADINE 53069567984 Active Antoinette Dickinson Immunizations Vaccine Administration Date [...] mg/dL Encounters Code Encounter Date Provider Facility CPT-13554 Ofc Vst, Est Level III 21:08:46 CDT Antoinette Dickinson DO, FACP CPT-40944 Ofc Vst, Est Level IV 20:22:13 CDT Antoinette Dickinson DO, FACP CPT-99305 Ofc Vst, Est Level III 13:31:05 ACCOUNTS RECEIVABLE ACCOUNTANT Antoinette Dickinson DO, FACP CPT-70413 Ofc Vst, New Level III 16:58:14 CDT Antoinette iDckinson DO, FACP Procedures Code Procedure Name Date Entry Date Standard Description CPT-77386 Preventive, Est, (40-64) 16:55:51 CDT CPT-82790 Preventive, Est, (40-64) 13:49:28 CDT CPT-97299 Handling of specimen from office to lab 12:51:38 CDT CPT-12903 Geraldo Dawn, (40-64) 12:51:38 CDT
--- OUTSIDE RECORDS SUMMARY | 2016-10-29 04:45 | XMS REPORT | Clinical Summary ---
Author Author User, [employer] Organization Antoinette Dickinson DO, FACP Address Unknown [...] MG TAB 1 PO BID AMOXICILLIN-POT CLAVULANATE 57986985648 Active Antoinette Dickinson AUGMENTIN 500-125 MG TAB 1 PO BID AMOXICILLIN-POT CLAVULANATE 04653600527 No Longer Active Antoinette Dickinson ATROVENT 0.06 % SOLN 2 puffs each nostril TID prn runny nose 2013 IPRATROPIUM BROMIDE 48712369068 No Longer Active Antoinette Dickinson PYRIDIUM 200 MG TAB 1 PO TID prn urinary urgency PHENAZOPYRIDINE HCL 36038063302 No Longer Active Monica Mcmahon BACTRIM DS 800-160 MG TAB 1 PO BID x 5 DAYS TRIMETHOPRIM-SULFAMETHOXAZOLE 79841187952 No Longer Active Monica Mcmahon KEFLEX 500 MG CAP 1 PO TID for 5 days CEPHALEXIN 40823576733 No Longer Active Antoinette Dickinson NASONEX 50 MCG/ACT SUSP 2 puffs BID MOMETASONE FUROATE 16039791231 Active Gianluca Vigil PREDNISONE 20 MG TAB 2 pills at once for 2 days then 1 pill daily for 2 days PREDNISONE 34333435950 No Longer Active Antoinette Dickinson AUGMENTIN 500-125 MG TAB 1 PO BID AMOXICILLIN-POT CLAVULANATE 12414744479 No Longer Active Antoinette DE LA CRUZ NASAL SPRAY (DEXAMETHASONE, GENTAMICIN, SALINE) 2 puffs each nostril TID for [address] DE LA CRUZ NASAL SPRAY ( DEXAMETHASONE, GENTAMICIN, SALINE) No Longer Active Antoinette Dickinson CLARITIN 10 MG TAB 1 PO daily LORATADINE 13951214616 Active Antoinette Dickinson Immunizations Vaccine Administration Date [...] mg/dL Encounters Code Encounter Date Provider Facility CPT-09912 Ofc Vst, Est Level III 21:08:46 CDT Antoinette Dickinson DO FACJhonatan CPT-43748 Ofc Vst, Est Level IV 20:22:13 CDT Antoinette Dickinson DO FACP CPT-07555 Ofc Vst, Est Level III 13:31:05 [employer] MANAGER Antoinette Dickinson DO FACP CPT-35922 Ofc Vst, New Level III 16:58:14 CDT Antoinette Dickinson DO, FACJhonatan Procedures Code Procedure Name Date Entry Date Standard Description CPT-37521 Preventive, Est, (40-64) 16:55:51 CDT CPT-99976 Preventive, Est, (40-64) 13:49:28 CDT CPT-55708 Handling of specimen from office to lab 12:51:38 CDT [facility]-25914 Preventive, Est, (40-64) 12:51:38 CDT
--- OUTSIDE RECORDS SUMMARY | 2016-10-29 04:45 | XMS REPORT | Clinical Summary ---
Author Author User, [employer] Organization Antoinette Dickinson DO, FACP Address Unknown [...] MG TAB 1 PO BID AMOXICILLIN-POT CLAVULANATE 06808663247 No Longer Active Antoinette Dickinson ATROVENT 0.06 % SOLN 2 puffs each nostril TID prn runny nose 2013 IPRATROPIUM BROMIDE 98198283749 No Longer Active Antoinette Dickinson PYRIDIUM 200 MG TAB 1 PO TID prn urinary urgency PHENAZOPYRIDINE HCL 68539908313 No Longer Active Monica Mcmahon BACTRIM DS 800-160 MG TAB 1 PO BID x 5 DAYS TRIMETHOPRIM-SULFAMETHOXAZOLE 82901637056 No Longer Active Monica Mcmahon KEFLEX 500 MG CAP 1 PO TID for 5 days CEPHALEXIN 57203786057 No Longer Active Antoinette Dickinson NASONEX 50 MCG/ACT SUSP 2 puffs BID MOMETASONE FUROATE 39202604611 Active Gianluca Vigil PREDNISONE 20 MG TAB 2 pills at once for 2 days then 1 pill daily for 2 days PREDNISONE 57099737944 No Longer Active Antoinette Dickinson AUGMENTIN 500-125 MG TAB 1 PO BID AMOXICILLIN-POT CLAVULANATE 65361187556 No Longer Active Antoinette PERRY'Silverio NASAL SPRAY (DEXAMETHASONE, GENTAMICIN, SALINE) 2 puffs each nostril TID for [address] 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
== END 2016-09-23 13:44 | disposition home or self-care (01) ==
LOC: EDUNIT# 09:14 → ER 09:15
DX: R10.11 Right upper quadrant pain (principal); K82.4 Cholesterolosis of gallbladder
CPT/HCPCS: 36415; 71010; 74181; 76705; 80053; 82150; 83690; 83735; 83874; 84484; 85025; 85379; 85610; 85730; 93005; 93041; 96360

== ENCOUNTER 2016-09-27 05:35 | Outpatient (CLI) | payer OTHER ==
[~2016-09-27] VITALS: Ht 162.6 cm; Wt 63.5 kg
[~2016-09-27 05:35] MED LIST changes: +METF500T4 PO
[2016-09-27] MEDS ORDERED: CYAN100088 PO (14:40)
[2016-09-27] MEDS ORDERED: VITA-189 PO (14:40)
[2016-09-27] MEDS ORDERED: FEXO180T84 PO (14:40)
== END 2016-09-27 14:43 ==
LOC: PREOP 05:35
PROVIDERS: ATTEND Surgery
DX: Z01.818 Encounter for other preprocedural examination (principal); K82.4 Cholesterolosis of gallbladder

== ENCOUNTER → 2017-07-10 | Outpatient (CLI) | payer SELFPAY ==
[~2017-07-10] MED LIST changes: +CYAN100088 PO; +FEXO180T84 PO; +VITA-189 PO
--- NOTE | 2017-07-10 12:08 | Diagnostic Imaging Report ---
INDICATION: Routine screening. COMPARISON: Comparison is made with prior study from 05/17/2016 and 04/29/2015. FINDINGS: Moderate parenchymal density is noted bilaterally. The parenchymal pattern is stable. No dominant mass or malignant appearing microcalcifications are seen. The axillae are unremarkable. IMPRESSION: No mammographic features suspicious for malignancy are identified. ACR BI-RADS Category 1: Negative. Result letter will be mailed to the patient. Note: At least 10% of breast cancer is not imaged by mammography. Dictated by: Dictated on workstation # [id number]
== END ==
LOC: RAD 10:45
PROVIDERS: ATTEND Internal Medicine
DX: Z12.31 Encounter for screening mammogram for malignant neoplasm of breast (principal)
CPT/HCPCS: 77067

== ENCOUNTER → 2018-07-09 | Outpatient (CLI) | payer OTHER ==
[~2018-07-09] MED LIST changes: +METF-397 PO; -METF500T4 PO
== END ==
LOC: LAB 08:21
PROVIDERS: ATTEND Internal Medicine
DX: Z00.00 Encounter for general adult medical examination without abnormal findings (principal); E11.65 Type 2 diabetes mellitus with hyperglycemia; E78.1 Pure hyperglyceridemia; E78.00 Pure hypercholesterolemia, unspecified
CPT/HCPCS: 36415; 80061; 83036; 84443

== ENCOUNTER → 2018-10-15 | Outpatient (CLI) | payer OTHER ==
--- NOTE | 2018-10-15 10:06 | Diagnostic Imaging Report ---
INDICATION: Postmenopausal female. COMPARISON: None available. FINDINGS: AP Spine L1-L4: [BMD (g/cm2): 0.881] [T-Score: -2.7] [Z-Score: -0.9] [BMD Previous: na] [BMD % Change: na] LT Hip Neck: [BMD (g/cm2): 0.629] [T-Score: -2.9] [Z-Score: -1.4] LT Hip Total: [BMD (g/cm2):0.702] [T-Score:-2.4] [Z-Score: -1.1] [BMD Previous: na] [BMD % Change: na] RT Hip Neck: [BMD (g/cm2):0.655] [T-Score:-2.8] [Z-Score:-1.2] RT Hip Total: [BMD (g/cm2):0.681] [T-score:-2.6] [Z-Score:-1.3] [BMD Previous:na] [BMD % Change:na] *Indicates significant change from prior examination based on 95% confidence level. World Health Organization criteria for BMD interpretation classify patients as Normal (T-score at or above -1.0), Osteopenic (T-score between -1.0 and -2.5) or Osteoporotic (T-score at or below -2.5). LIMITATIONS AND MODIFICATION: None. FRACTURE RISK (FRAX SCORE): Osteoporosis. IMPRESSION: 1. Osteoporosis. 2. Baseline examination. 3. See below National Osteoporosis Foundation guidelines on when to potentially initiate pharmacologic therapy. Based on the National Osteoporosis Foundation Guidelines, pharmacologic treatment should be initiated in any of the following, unless clinical conditions suggest otherwise: * Any patient with prior fragility fracture of the hip or vertebrae. A spine fracture indicates 5X risk for subsequent spine fracture and 2X risk for subsequent hip fracture. * Osteoporosis (T-score <-2.5). * Postmenopausal women and men age 50 and older with low bone mass/osteopenia (T-score between -1.0 and -2.5) by DXA and 10-year major osteoporotic fracture greater than 20% or a 10-year probability of hip fracture greater than 3%. These fracture risks are supplied above in the FRAX score, if applicable. * Clinician judgement and/or patient preferences may indicate treatment for people with 10-year fracture probabilities above or below these levels. Dictated by: Dictated on workstation # [id number]
--- NOTE | 2018-10-15 14:57 | Diagnostic Imaging Report ---
PROCEDURE: US Thyroid. TECHNIQUE: Multiple real-time grayscale images were obtained of the thyroid in various projections. INDICATION: Thyroid nodule. FINDINGS: The right lobe of the thyroid measures 3.6 x 1.6 x 1 cm. There is a small heterogeneous nodule in the mid right lobe of thyroid measuring 0.6 x 0.5 cm. Similar nodule seen inferiorly measuring 0.8 x 0.6 cm. Left lobe of the thyroid measures 4 x 1.8 x 0.9 cm. There are 2 heterogeneous nodules. The larger nodule seen inferiorly measures 0.7 x 0.5 cm. Smaller nodule seen superiorly measures 0.4 x 0.3 cm. Thyroid isthmus measures 3.2 mm. IMPRESSION: Multiple tiny subcentimeter benign-appearing thyroid nodules, likely multinodular goiter. Dictated by: Dictated on workstation # [id number]
--- NOTE | 2018-10-15 15:49 | Diagnostic Imaging Report ---
INDICATION: Screening. TECHNIQUE: The current study was also evaluated with a Computer Aided Detection (CAD) system. 3D tomographic imaging was also performed. COMPARISON: 07/10/2017, 05/17/2016, and 04/29/2015. FINDINGS: There are scattered fibroglandular densities bilaterally. There are a few benign type calcifications. There is no dominant mass, spiculated lesion, or suspicious calcifications identified. The skin, nipples, and axillae are unremarkable. IMPRESSION: Benign findings. ACR BI-RADS Category 2: Benign findings. Result letter will be mailed to the patient. Note: At least 10% of breast cancer is not imaged by mammography. Dictated by: Dictated on workstation # [id number]
== END ==
LOC: RAD 08:28
PROVIDERS: ATTEND Internal Medicine
DX: Z12.31 Encounter for screening mammogram for malignant neoplasm of breast (principal); E04.2 Nontoxic multinodular goiter; M81.0 Age-related osteoporosis without current pathological fracture; M85.89 Other specified disorders of bone density and structure, multiple sites; Z78.0 Asymptomatic menopausal state
CPT/HCPCS: 76536; 77067; 77080

== ENCOUNTER → 2018-12-30 | Outpatient (CLI) | payer OTHER ==
[2018-12-30 07:18] LABS: BASOPHILS % (AUTO) 0 % (0-10); EOSINOPHILS # (AUTO) 0.2 10^3/uL (0.0-0.3); EOSINOPHILS % (AUTO) 2 % (0-10); HEMATOCRIT 39 % (35-52); HEMOGLOBIN 12.9 G/DL (11.5-16.0); LYMPHOCYTES # (AUTO) 3.3 X 10^3 (1.0-4.0); LYMPHOCYTES % (AUTO) 40 % (12-44); MEAN CORPUSCULAR HEMOGLOBIN 28 PG (25-34); MEAN CORPUSCULAR HGB CONC 33 G/DL (32-36); MEAN CORPUSCULAR VOLUME 86 FL (80-99); MEAN PLATELET VOLUME 9.7 FL (7.4-10.4); MONOCYTES # (AUTO) 0.6 X 10^3 (0.0-1.0); MONOCYTES % (AUTO) 7 % (0-12); NEUTROPHILS # (AUTO) 4.1 X 10^3 (1.8-7.8); NEUTROPHILS % (AUTO) 50 % (42-75); PLATELET COUNT 282 10^3/uL (130-400); RED CELL DISTRIBUTION WIDTH 12.5 % (10.0-14.5); WHITE BLOOD COUNT 8.2 10^3/uL (4.3-11.0)
[2018-12-30 07:48] LABS: ALANINE AMINOTRANSFERASE 13 U/L (0-55); ALBUMIN 4.2 GM/DL (3.2-4.5); ALKALINE PHOSPHATASE 81 U/L (40-136); BILIRUBIN,TOTAL 0.2 MG/DL (0.1-1.0); BUN/CREATININE RATIO 23; CALCIUM 9.7 MG/DL (8.5-10.1); CARBON DIOXIDE 26 MMOL/L (21-32); CHLORIDE 102 MMOL/L (98-107); CHOLESTEROL 156 MG/DL (< 200); CREATININE SERUM 0.88 MG/DL (0.60-1.30); GFR ESTIMATED > 60; GLUCOSE 96 MG/DL (70-105); HDL CHOLESTEROL 60 MG/DL (40-60); POTASSIUM 3.8 MMOL/L (3.6-5.0); SODIUM 139 MMOL/L (135-145); TOTAL PROTEIN 7.3 GM/DL (6.4-8.2); TRIGLYCERIDES 43 MG/DL (<150); VLDL CHOLESTEROL 9 MG/DL (5-40)
== END ==
LOC: LAB 07:04
PROVIDERS: ATTEND Internal Medicine
DX: Z00.00 Encounter for general adult medical examination without abnormal findings (principal); E04.1 Nontoxic single thyroid nodule; E11.65 Type 2 diabetes mellitus with hyperglycemia; E78.2 Mixed hyperlipidemia
CPT/HCPCS: 36415; 80053; 80061; 82043; 83036; 84439; 84443; 85025

== ENCOUNTER → 2019-11-25 | Outpatient (CLI) | payer MEDICARE, OTHER ==
--- NOTE | 2019-11-25 16:05 | Diagnostic Imaging Report ---
INDICATION: Routine screening. COMPARISON is made with prior mammograms of 10/15/2018 and 07/10/2017. 2-D and 3-D bilateral screening mammography was performed with CAD. Scattered fibroglandular densities are identified bilaterally. The parenchymal pattern is stable. No dominant mass or malignant appearing microcalcifications are seen. Axillae are unremarkable. IMPRESSION: BI-RADS Category 1 No mammographic features suspicious for malignancy are identified. Dictated by: Dictated on workstation # [id number]
== END ==
LOC: RAD 12:40
PROVIDERS: ATTEND Internal Medicine
DX: Z12.31 Encounter for screening mammogram for malignant neoplasm of breast (principal)
CPT/HCPCS: 77063; 77067

== ENCOUNTER → 2020-09-21 | Outpatient (CLI) | payer MEDICARE ==
--- NOTE | 2020-09-21 13:08 | Diagnostic Imaging Report ---
INDICATION: Generalized abdominal pain. PROCEDURE: Ultrasound abdomen complete. TECHNIQUE: Multiple Real-time grayscale images were obtained of the abdomen in various projections. FINDINGS: The liver is normal in size at 16 cm. No discrete liver mass is detected. The portal vein is patent and shows normal direction of flow. The gallbladder is without stones or sludge. No wall thickening or biliary ductal dilatation is seen. The pancreas is unremarkable. The spleen is normal in size at 7.3 cm. The aorta is nonaneurysmal. The right and left kidneys are without hydronephrosis or calculi. There is no ascites. IMPRESSION: Unremarkable abdominal ultrasound. Dictated by: Dictated on workstation # [id number]
== END ==
LOC: RAD 09:14
PROVIDERS: ATTEND Internal Medicine
DX: R10.84 Generalized abdominal pain (principal)
CPT/HCPCS: 76700

== ENCOUNTER → 2020-09-28 | Outpatient (CLI) | payer MEDICARE ==
--- NOTE | 2020-09-28 15:35 | Diagnostic Imaging Report ---
INDICATION: Postmenopausal screening. COMPARISON: 10/15/2018 FINDINGS: AP Spine L1-L4: [BMD (g/cm2): 0.757] [T-Score: -3.7] [Z-Score: -2.1] [BMD Previous: 0.881] [BMD % Change: -14.1] LT Hip Neck: [BMD (g/cm2): 0.630] [T-Score: -2.9] [Z-Score: -1.4] LT Hip Total: [BMD (g/cm2):0.691] [T-Score:-2.5] [Z-Score: -1.3] [BMD Previous: .702] [BMD % Change: -1.6] RT Hip Neck: [BMD (g/cm2):0.649] [T-Score:-2.8] [Z-Score:-1.3] RT Hip Total: [BMD (g/cm2):0.709] [T-score:-2.4] [Z-Score:-1.1] [BMD Previous:0.681] [BMD % Change:4.1] *Indicates significant change from prior examination based on 95% confidence level. World Health Organization criteria for BMD interpretation classify patients as Normal (T-score at or above -1.0), Osteopenic (T-score between -1.0 and -2.5) or Osteoporotic (T-score at or below -2.5). LIMITATIONS AND MODIFICATION: None. FRACTURE RISK (FRAX SCORE): The ten year probability of (%): Major Osteoporotic Fracture: [26.8] Hip Fracture: [8.0] IMPRESSION: 1. Osteoporosis. 2. No significant change in bone mineral density since prior examination. 3. See below National Osteoporosis Foundation guidelines on when to potentially initiate pharmacologic therapy. Based on the National Osteoporosis Foundation Guidelines, pharmacologic treatment should be initiated in any of the following, unless clinical conditions suggest otherwise: * Any patient with prior fragility fracture of the hip or vertebrae. A spine fracture indicates 5X risk for subsequent spine fracture and 2X risk for subsequent hip fracture. * Osteoporosis (T-score <-2.5). * Postmenopausal women and men age 50 and older with low bone mass/osteopenia (T-score between -1.0 and -2.5) by DXA and 10-year major osteoporotic fracture greater than 20% or a 10-year probability of hip fracture greater than 3%. These fracture risks are supplied above in the FRAX score, if applicable. * Clinician judgement and/or patient preferences may indicate treatment for people with 10-year fracture probabilities above or below these levels. Dictated by: Dictated on workstation # [id number]
== END ==
LOC: RAD 11:37
PROVIDERS: ATTEND Internal Medicine
DX: M81.0 Age-related osteoporosis without current pathological fracture (principal); Z78.0 Asymptomatic menopausal state
CPT/HCPCS: 77080

== ENCOUNTER → 2020-12-02 | Outpatient (CLI) | payer MEDICARE ==
--- NOTE | 2020-12-03 08:48 | Diagnostic Imaging Report ---
INDICATION: Routine screening. COMPARISON is made with prior mammograms from 11/25/2019 and 10/15/2018. 2-D and 3-D bilateral screening mammography was performed with CAD. Scattered fibroglandular densities are identified bilaterally. The parenchymal pattern is stable. There is no mass or malignant appearing microcalcifications. Axillae are unremarkable. IMPRESSION: BI-RADS Category 1 No mammographic features suspicious for malignancy are identified. ACR BI-RADS Category 1: Negative. Result letter will be mailed to the patient. Note: At least 10% of breast cancer is not imaged by mammography. Dictated by: Dictated on workstation # [id number]
== END ==
LOC: RAD 15:16
PROVIDERS: ATTEND Internal Medicine
DX: Z12.31 Encounter for screening mammogram for malignant neoplasm of breast (principal)
CPT/HCPCS: 77063; 77067

== ENCOUNTER → 2021-07-12 | Outpatient (CLI) | payer MEDICARE, OTHER | LOC: CARD 08:00 | PROVIDERS: ATTEND Internal Medicine | DX: R00.2 Palpitations (principal) | CPT/HCPCS: 93225; 93226 ==

== ENCOUNTER → 2021-12-05 | Outpatient (CLI) | payer MEDICARE, OTHER ==
--- NOTE | 2021-12-05 13:07 | Diagnostic Imaging Report ---
INDICATION: Routine screening. COMPARISON is made with prior mammograms 12/02/2020 and 11/25/2019. 2-D and 3-D bilateral screening mammography was performed with CAD. Both breasts are heterogeneously dense, limiting the sensitivity of mammography. No mass or malignant-appearing microcalcifications are seen. Axillae are unremarkable. IMPRESSION: BI-RADS Category 1 No mammographic features suspicious for malignancy are identified. ACR BI-RADS Category 1: Negative. Result letter will be mailed to the patient. Note: At least 10% of breast cancer is not imaged by mammography. Dictated by: Dictated on workstation # [id number]
== END ==
LOC: RAD 10:45
PROVIDERS: ATTEND Internal Medicine
DX: Z12.31 Encounter for screening mammogram for malignant neoplasm of breast (principal)
CPT/HCPCS: 77063; 77067

== ENCOUNTER → 2022-12-18 | Outpatient (CLI) | payer MEDICARE, OTHER ==
--- NOTE | 2022-12-18 12:01 | Diagnostic Imaging Report ---
INDICATION: Routine screening. COMPARISON: 12/05/2021 and 12/02/2020. TECHNIQUE: 2D and 3D bilateral screening mammography was performed with CAD. FINDINGS: Scattered fibroglandular densities are identified bilaterally. The parenchymal pattern is stable. No mass or malignant-appearing microcalcifications are seen. The axillae are unremarkable. IMPRESSION: No mammographic features suspicious for malignancy are identified. ACR BI-RADS Category 1: Negative. Result letter will be mailed to the patient. Note: At least 10% of breast cancer is not imaged by mammography. Dictated by: Dictated on workstation # [id number]
== END ==
LOC: RAD 10:00
PROVIDERS: ATTEND Internal Medicine
DX: Z12.31 Encounter for screening mammogram for malignant neoplasm of breast (principal)
CPT/HCPCS: 77063; 77067

== ENCOUNTER → 2023-02-20 | Outpatient (CLI) | payer MEDICARE ==
--- NOTE | 2023-02-20 13:30 | Diagnostic Imaging Report ---
INDICATION: Postmenopausal state. COMPARISON: 09/28/2020. FINDINGS: AP Spine L2-L4: [BMD (g/cm2): 0.920] [T-Score: -2.3] [Z-Score: -0.6] [BMD Previous: 0.757] [BMD % Change: 21.5*] LT Hip Neck: [BMD (g/cm2): 0.647] [T-Score: -2.8] [Z-Score: -1.2] LT Hip Total: [BMD (g/cm2):0.760] [T-Score:-2.0] [Z-Score: -0.6] [BMD Previous: 0.691] [BMD % Change: 10.0*] RT Hip Neck: [BMD (g/cm2):0.706] [T-Score:-2.4] [Z-Score:-0.8] RT Hip Total: [BMD (g/cm2):0.747] [T-score:-2.1] [Z-Score:-0.7] [BMD Previous:0.709] [BMD % Change:5.4*] *Indicates significant change from prior examination based on 95% confidence level. World Health Organization criteria for BMD interpretation classify patients as Normal (T-score at or above -1.0), Osteopenic (T-score between -1.0 and -2.5) or Osteoporotic (T-score at or below -2.5). LIMITATIONS AND MODIFICATION: None. FRACTURE RISK (FRAX SCORE): The ten year probability of (%): Major Osteoporotic Fracture: [26.2] Hip Fracture: [7.7] IMPRESSION: 1. Osteoporosis. 2. There has been a statistically significant increase in BMD since prior exam, detailed above. 3. See below National Osteoporosis Foundation guidelines on when to potentially initiate pharmacologic therapy. Based on the National Osteoporosis Foundation Guidelines, pharmacologic treatment should be initiated in any of the following, unless clinical conditions suggest otherwise: * Any patient with prior fragility fracture of the hip or vertebrae. A spine fracture indicates 5X risk for subsequent spine fracture and 2X risk for subsequent hip fracture. * Osteoporosis (T-score <-2.5). * Postmenopausal women and men age 50 and older with low bone mass/osteopenia (T-score between -1.0 and -2.5) by DXA and 10-year major osteoporotic fracture greater than 20% or a 10-year probability of hip fracture greater than 3%. These fracture risks are supplied above in the FRAX score, if applicable. * Clinician judgement and/or patient preferences may indicate treatment for people with 10-year fracture probabilities above or below these levels. Dictated by: Dictated on workstation # [id number]
== END ==
LOC: RAD 10:34
PROVIDERS: ATTEND Internal Medicine
DX: M81.0 Age-related osteoporosis without current pathological fracture (principal)
CPT/HCPCS: 77080